=== PATIENT | female | born 1945 | race Caucasian/White ===

== ENCOUNTER 2017-05-17 19:21 | Inpatient (IN) | payer OTHER, MEDICARE ==
[2017-05-17] MEDS ORDERED: ONDANSETRON 4 MG/2 ML VIAL IVP ONE (19:37)
[2017-05-17] MEDS ORDERED: fentaNYL 100 MCG/2 ML INJ IVP ONE (19:37)
[2017-05-17] MEDS ORDERED: DEXAMETHASONE 10 MG/ML VIAL IVP ONE (19:37)
[2017-05-17 19:56] LABS: % IMMATURE GRANULYOCYTES 0.8 % (0.0-1.1); ABSOLUTE IMMATURE GRANULOCYTES 0.07 10^3/uL (0.00-0.10); ADD DIFF? NO; ADD MORPH? NO; ADD SCAN? NO; ATYPICAL LYMPHOCYTE FLAG 20 (0-99); FRAGMENT RBC FLAG 0 (0-99); HEMATOCRIT 39.7 % (38.0-47.0); HEMOGLOBIN 13.9 g/dL (12.6-16.3); LEFT SHIFT FLG 10 (0-99); LIPEMIA HEMOLYSIS FLAG 90 (0-99); MEAN CELL HEMOGLOBIN 32.3 pg (27.9-34.1); MEAN CELL VOLUME 92.1 fL (81.5-99.8); MEAN PLATELET VOLUME 8.6 fL (8.7-11.7); PLATELET CLUMPS FLAG 0 (0-99); PLATELET COUNT 329 10^3/uL (150-400); RED BLOOD CELL COUNT 4.31 10^6/uL (4.18-5.33); RED CELL DISTRIBUTION WIDTH 11.2 % (11.5-15.2)
[2017-05-17 20:05] LABS: ANION GAP 14 mEq/L (8-16); CALCIUM 9.9 mg/dL (8.5-10.4); CARBON DIOXIDE 20 mEq/l (22-31); CHLORIDE 87 mEq/L (97-110); CREATININE 0.7 mg/dL (0.6-1.0); GLOMERULAR FILTRATION RATE > 60; GLUCOSE 99 mg/dL (70-100); POTASSIUM 4.1 mEq/L (3.5-5.2); SODIUM 121 mEq/L (134-144)
--- NOTE | 2017-05-17 20:08 | EDPHY ---
HPI/HX/ROS/PE/MDM Narrative: CHIEF COMPLAINT: Headache, vomiting HISTORY OF PRESENT ILLNESS: This patient is a 71 year old female with history of migraines complaining of severe headache and associated nausea onset this morning around 10:00. She describes a gradually worsening ache in the same location as her usual migraines , beginning at the back of her skull and over her eyes. Today's headache is more severe than usual, and she has has two episodes of vomiting and has been feeling "slow" today. She was last seen in the emergency department for headache around 1.5 years ago. She states she often develops headaches from various dietary causes, nearly daily, and treats them with Gabapentin. Sunday, she had a headache and took a Cambia (diclofenac) which her neurologist have prescribed. This did not relieve her symptoms. She states she has been feeling flushed and warm, but has not taken her temperature. She denies numbness, tingling, or weakness in her extremities. No history of stroke. No hypertension. No chills, chest pain, shortness of breath, palpitations, diarrhea , urinary complaints, lightheadedness. She is scheduled for a nerve block procedure in her neck tomorrow to attempt to reduce the frequency and severity of her headaches. Of note, the patient developed symptoms of bronchitis one week ago and began taking Ceftin on Sunday, two days ago. She is also taking Mucinex DM and inhaler treatments for relief of respiratory symptoms. REVIEW OF SYSTEMS: Aside from elements discussed in the HPI, a comprehensive 10-point review of systems was reviewed and is negative. PAST MEDICAL HISTORY: Migraines. SOCIAL HISTORY: . VITAL SIGNS: Reviewed by me GENERAL: Well-developed, well-nourished, resting comfortably in no respiratory distress. Quiet, slow to respond to questions. HEENT: Atraumatic. Eyes: No icterus, no injection. SONIA, EOMI. Cranial nerves 2 -12 are intact. Mouth: moist mucous membranes. No erythema or lesions. Neck: supple with no adenopathy. No meningismus. LUNGS: Clear to auscultation bilaterally, no wheezes, rhonchi or rales. CARDIAC: Regular rate and rhythm, no rubs, murmurs or gallops. ABDOMEN: Soft, nontender, nondistended, bowel sounds normal. BACK: No CVA tenderness. EXTREMITIES: No trauma. No edema. Range of motion is normal throughout. NEURO: Alert and oriented, motor strength 5/5 throughout. Sensation intact to light touch throughout. SKIN: Warm and dry, no rash. PSYCHIATRIC: Normal mentation, no agitation. Portions of this note were transcribed by a medical assistant ob gyn. I personally performed a history, physical exam, medical decision making, and confirmed accuracy of information the transcribed note. ED Course: 71-year-old female presenting with migraine headache which is more severe than her typical headaches. She also feels slow and sluggish. Plan to CT the patient's head, provide fluids, check electrolytes, and treat for migraine headache. 20:[address] Juhi Arroyo, radiologist. CT head negative. Laboratory evaluation remarkable for sodium of 121. Patient received 500 cc of normal saline. Chest x-ray shows peribronchial fullness. Plan for admission for hyponatremia 20:30 Reassessed patient. Feeling better secondary to meds. is in the room. Agree with plan of admission. 20:[address] Butler, hospitalist. She accepts admission for hyponatremia, headache management. MDM: After history was obtained, and the physical exam performed, a differential for patient's symptom complex was considered including, but not limited to, subarachnoid hemorrhage, migraine headache, electrolyte abnormalities, TIA, stroke, tension headache and infectious causes such as meningitis, sinusitis, encephalitis. - Data Points Imaging Results: Imaging Impressions Head CT 05/17/17 19:37 Impression: Nothing acute or focal. Findings and recommendations discussed with Pamela Bateman M.D., at 2015 hours , on May 17, 2017. Final report concurs with initial preliminary interpretation. Chest X-Ray 05/17/17 20:08 Impression: Mild peribronchial thickening. Imaging: Discussed imaging studies w/ electronics instructor Radiologist, I viewed and interpreted images myself Laboratory Results: Laboratory Results 05/17/17 19:53 05/17/17 19:53 05/17/17 05/17/17 19:53 19:53 WBC 8.33 10^3/uL 10^3/uL (3.80-9.50) RBC 4.31 10^6/uL 10^6/uL (4.18-5.33) Hgb 13.9 g/dL g/dL (12.6-16.3) Hct 39.7 % % (38.0-47.0) MCV 92.1 fL fL (81.5-99.8) MCH 32.3 pg pg (27.9-34.1) MCHC 35.0 g/dL g/dL (32.4-36.7) RDW 11.2 % L % (11.5-15.2) Plt Count 329 10^3/uL 10^3/uL (150-400) MPV 8.6 fL L fL (8.7-11.7) Neut % (Auto) 74.4 % H % (39.3-74.2) Lymph % (Auto) 15.5 % % (15.0-45.0) [place] % (Auto) 8.9 % % (4.5-13.0) Eos % (Auto) 0.2 % L % (0.6-7.6) Baso % (Auto) 0.2 % L % (0.3-1.7) Nucleat RBC Rel Count 0.0 % % (0.0-0.2) Absolute Neuts (auto) 6.19 10^3/uL 10^3/uL (1.70-6.50) Absolute Lymphs (auto) 1.29 10^3/uL 10^3/uL (1.00-3.00) Absolute Monos (auto) 0.74 10^3/uL 10^3/uL (0.30-0.80) Absolute Eos (auto) 0.02 10^3/uL L 10^3/uL (0.03-0.40) Absolute Basos (auto) 0.02 10^3/uL 10^3/uL (0.02-0.10) Absolute Nucleated RBC 0.00 10^3/uL 10^3/uL (0-0.01) Immature Gran % 0.8 % % (0.0-1.1) Immature Gran # 0.07 10^3/uL 10^3/uL (0.00-0.10) Sodium 121 mEq/L L mEq/L (134-144) Potassium 4.1 mEq/L mEq/L (3.5-5.2) Chloride 87 mEq/L L mEq/L (97-110) Carbon Dioxide 20 mEq/l L mEq/l (22-31) Anion Gap 14 mEq/L mEq/L (8-16) BUN 15 mg/dL mg/dL (7-23) Creatinine 0.7 mg/dL mg/dL (0.6-1.0) Estimated GFR > 60 Glucose 99 mg/dL mg/dL (70-100) Calcium 9.9 mg/dL mg/dL (8.5-10.4) Medications Given: Discontinued Medications Dexamethasone (Decadron Injection) 10 mg IVP EDNOW ONE Stop: 05/17/17 19:38 Last Admin: 05/17/17 20:19 Dose: 10 mg Fentanyl (Sublimaze) 50 mcg IVP EDNOW ONE Stop: 05/17/17 19:38 Last Admin: 05/17/17 20:18 Dose: 50 mcg Sodium Chloride (Ns) 500 mls @ 1,000 mls/hr IV EDNOW ONE PRN Reason: Protocol Stop: 05/17/17 20:39 Last Admin: 05/17/17 20:23 Dose: 500 mls Ondansetron HCl (Zofran) 4 mg IVP EDNOW ONE Stop: 05/17/17 19:38 Last Admin: 05/17/17 20:18 Dose: 4 mg General Time Seen by Provider: 05/17/17 19:35 Initial Vital Signs: Initial Vital Signs Temperature (C) 36.4 C 05/17/17 19:23 Heart Rate 84 05/17/17 19:23 Respiratory Rate 16 05/17/17 19:23 Blood Pressure 174/97 H 05/17/17 19:23 O2 Sat (%) 96 05/17/17 19:23 O2 Delivery Mode Room Air Allergies/Adverse Reactions: azithromycin [From Zithromax] Allergy (Mild, Verified 05/17/17 19:29) Rash oxycodone Allergy (Mild, Verified 05/17/17 20:57) Vomiting Penicillins Allergy (Mild, Verified 05/17/17 19:29) mild Home Medications: Medication Instructions Recorded Cefuroxime Axetil [Ceftin (*)] 250 mg PO BID 05/17/17 Cefuroxime Axetil [Cefuroxime] 250 mg PO BID 05/17/17 Diclofenac Potassium [Cambia] 50 mg PO 05/17/17 Diclofenac Potassium [Cambia] 50 mg PO DAILY PRN 05/17/17 Fluticasone Hfa 110 Mcg [Flovent 2 puffs IH BID 05/17/17 110 MCG Hfa MDI (*)] Gabapentin 600 mg PO 05/17/17 Gabapentin Enacarbil [Horizant] 600 mg PO HS 05/17/17 Herbals/Supplements -Info Only 1 ea PO DAILY 05/17/17 Omeprazole [Prilosec 20 mg] 20 mg PO DAILY 05/17/17 Thyroid,Pork [Westhroid] 32.5 mg PO DAILY 05/17/17 Departure - Departure Disposition: [facility] Inpatient Acute Clinical Impression: Hyponatremia Headache Qualifiers: Headache type: unspecified Headache chronicity pattern: chronic headache Intractability: not intractable Qualified Code(s): R51 - Headache Condition: Fair Report Scribed for: Pamela Bateman Report Scribed by: Cammie Martinez Date of Report: 05/17/17 Time of Report: 20:30
[2017-05-17] MEDS ORDERED: NS 500 ML IV ONE (20:10)
[2017-05-17] MEDS ORDERED: ONDANSETRON 4 MG/2 ML VIAL ONE (20:11)
[2017-05-17] MEDS ORDERED: fentaNYL 100 MCG/2 ML INJ ONE (20:12)
[2017-05-17] MEDS ORDERED: DEXAMETHASONE 10 MG/ML VIAL ONE (20:12)
[2017-05-17] MEDS ORDERED: METOCLOPRAMIDE 10 MG/2 ML VIAL IVP ONE (21:35)
[2017-05-17] MEDS ORDERED: HYDROmorphONE/DILAUDID 1 MG/ML SYR IVP ONE (21:36)
[2017-05-17] MEDS ORDERED: ACETAMINOPHEN 325 MG TAB PO PRN (22:26)
[2017-05-17] MEDS ORDERED: ONDANSETRON DISINTEGRATING 4 MG TAB PO PRN (22:26)
[2017-05-17] MEDS ORDERED: ONDANSETRON 4 MG/2 ML VIAL IVP PRN (22:26)
[2017-05-18 00:27] LABS: ANION GAP 11 mEq/L (8-16); CALCIUM 9.4 mg/dL (8.5-10.4); CARBON DIOXIDE 18 mEq/l (22-31); CHLORIDE 91 mEq/L (97-110); CREATININE 0.7 mg/dL (0.6-1.0); GLOMERULAR FILTRATION RATE > 60; GLUCOSE 85 mg/dL (70-100); POTASSIUM 4.4 mEq/L (3.5-5.2); SODIUM 120 mEq/L (134-144)
--- NOTE | 2017-05-18 00:37 | PDGENHP ---
History and Physical - Chief Complaint Headache - History of Present Illness Ms. Doretha Mo is a 71 yo F w/ hx of hypothyroidism, asthma, and migraines presenting to ED with headache. She was in her usual state of health until the middle of last week when she began to experience URI symptoms and visited an urgent care where she received steroids and albuterol for an asthma exacerbation. Her symptoms did not completely resolve so she visited her PCP on Sunday and was prescribed cefuroxime. On the morning prior to admission she woke up with a severe migraine and went to the ED for evaluation. She describes the headache as her usual migraine pattern (pulsating, behind eyes) but worse in severity and not helped by her home PRN medications. Upon arrival to the ED, her pain improved with medication but she was noted to have a sodium of 121 and therefore admitted. She currently denies infectious symptoms. History Information - Allergies/Home Medication List Allergies/Adverse Reactions: azithromycin [From Zithromax] Allergy (Mild, Verified 05/17/17 19:29) Rash oxycodone Allergy (Mild, Verified 05/17/17 20:57) Vomiting Penicillins Allergy (Mild, Verified 05/17/17 19:29) mild Home Medications: Albuterol [Proventil Inhaler HFA (*)] 1 - 2 puffs IH Q4H PRN 05/17/17 [Last Taken Unknown] Ascorbic Acid [Vitamin C 500 mg (*)] 1,000 mg PO BID 05/17/17 [Last Taken Unknown] Cefuroxime Axetil [Cefuroxime] 250 mg PO BID 05/17/17 [Last Taken 05/17/17] Compounded Estriol Cream 0.3% 1 tami VG TUTH 05/17/17 [Last Taken Unknown] Compounded Progesterone 200mg 200 mg PO HS 05/17/17 [Last Taken Unknown] Compounded Testosterone 5mg/G 1 tami TP DAILY 05/17/17 [Last Taken Unknown] Diclofenac Potassium [Cambia] 50 mg PO DAILY PRN 05/17/17 [Last Taken Unknown] Fluticasone Hfa 110 Mcg [Flovent 110 MCG Hfa MDI (*)] 2 puffs IH BID 05/17/17 [ Last Taken Unknown] Gabapentin Enacarbil [Horizant] 600 mg PO HS 05/17/17 [Last Taken Unknown] Herbals/Supplements -Info Only 1 ea PO DAILY 05/17/17 [Last Taken Unknown] Ibuprofen [Motrin (*)] 200 mg PO Q4 PRN 05/17/17 [Last Taken Unknown] Omeprazole [Prilosec 20 mg] 20 mg PO DAILY 05/17/17 [Last Taken Unknown] Thyroid,Pork [Westhroid] 32.5 mg PO DAILY 05/17/17 [Last Taken Unknown] I have personally reviewed and updated: family history, medical history - Past Medical History asthma, migraines (Hypothyroidism) - Surgical History Reports: no pertinent surgical hx - Family History Negative for: renal disease - Social History Smoking Status: Former smoker Alcohol Use: None Drug Use: None Review of Systems ROS: 10pt was reviewed & negative except for what was stated in HPI & below Physical Exam Temp Pulse Resp BP Pulse Ox 36.4 C 69 14 167/88 H 99 05/17/17 22:46 05/17/17 22:46 05/17/17 22:46 05/17/17 22:46 05/17/17 22:46 O2 (L/minute) 2 Constitutional: no apparent distress, not in pain Eyes: PERRL, EOMI Ears, Nose, Mouth, Throat: moist mucous membranes, no oral mucosal ulcers Cardiovascular: regular rate and rhythym, no murmur, rub, or gallop Respiratory: no respiratory distress, clear to auscultation Gastrointestinal: normoactive bowel sounds, soft, non-tender abdomen Skin: warm, no rashes or abrasions Musculoskeletal: full muscle strength, no muscle tenderness Neurologic: AAOx3, CN II-XII Intact Psychiatric: interacting appropriately, not anxious Lab Data & Imaging Review 05/17/17 19:53 05/17/17 23:40 WBC 8.33 10^3/uL (3.80-9.50) 05/17/17 19:53 RBC 4.31 10^6/uL (4.18-5.33) 05/17/17 19:53 Hgb 13.9 g/dL (12.6-16.3) 05/17/17 19:53 Hct 39.7 % (38.0-47.0) 05/17/17 19:53 MCV 92.1 fL (81.5-99.8) 05/17/17 19:53 MCH 32.3 pg (27.9-34.1) 05/17/17 19:53 MCHC 35.0 g/dL (32.4-36.7) 05/17/17 19:53 RDW 11.2 % (11.5-15.2) L 05/17/17 19:53 Plt Count 329 10^3/uL (150-400) 05/17/17 19:53 MPV 8.6 fL (8.7-11.7) L 05/17/17 19:53 Neut % (Auto) 74.4 % (39.3-74.2) H 05/17/17 19:53 Lymph % (Auto) 15.5 % (15.0-45.0) 05/17/17 19:53 [place] % (Auto) 8.9 % (4.5-13.0) 05/17/17 19:53 Eos % (Auto) 0.2 % (0.6-7.6) L 05/17/17 19:53 Baso % (Auto) 0.2 % (0.3-1.7) L 05/17/17 19:53 Nucleat RBC Rel Count 0.0 % (0.0-0.2) 05/17/17 19:53 Absolute Neuts (auto) 6.19 10^3/uL (1.70-6.50) 05/17/17 19:53 Absolute Lymphs (auto) 1.29 10^3/uL (1.00-3.00) 05/17/17 19:53 Absolute Monos (auto) 0.74 10^3/uL (0.30-0.80) 05/17/17 19:53 Absolute Eos (auto) 0.02 10^3/uL (0.03-0.40) L 05/17/17 19:53 Absolute Basos (auto) 0.02 10^3/uL (0.02-0.10) 05/17/17 19:53 Absolute Nucleated RBC 0.00 10^3/uL (0-0.01) 05/17/17 19:53 Immature Gran % 0.8 % (0.0-1.1) 05/17/17 19:53 Immature Gran # 0.07 10^3/uL (0.00-0.10) 05/17/17 19:53 Sodium 120 mEq/L (134-144) L 05/17/17 23:40 Potassium 4.4 mEq/L (3.5-5.2) 05/17/17 23:40 Chloride 91 mEq/L (97-110) L 05/17/17 23:40 Carbon Dioxide 18 mEq/l (22-31) L 05/17/17 23:40 Anion Gap 11 mEq/L (8-16) 05/17/17 23:40 BUN 14 mg/dL (7-23) 05/17/17 23:40 Creatinine 0.7 mg/dL (0.6-1.0) 05/17/17 23:40 Estimated GFR > 60 05/17/17 23:40 Glucose 85 mg/dL (70-100) 05/17/17 23:40 Calcium 9.4 mg/dL (8.5-10.4) 05/17/17 23:40 Urine Osmolality 482 mosmo/kg (300-900) 05/17/17 23:00 Ur Random Creatinine 26.2 mg/dL 05/17/17 23:00 Ur Random Sodium 159 mEq/L (30-90) H 05/17/17 23:00 Imaging Review: Unremarkable CT head, CXR with ranjan-bronchial cuffing Visualized and Interpreted Chest x-ray results: Yes Assessment & Plan Assessment: Ms Doretha Mo is a 71 yo F w/ hx of migraines, hypothyroidism, and asthma presenting with headache and hyponatremia after recent respiratory infection. Plan: 1. 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 SIADH supported by: Na 121->120 after 500 mL of NS ; Barber 149, FeNa 3.5%, Uosm>400. CTH unremarkable, no neurologic symptoms currently aside from resolved headache. - 2L fluid restriction for now, recheck BMP in AM - Renal consult in the morning (no answer tonight) - TSH with morning labs 2. Asthma - Patient describes as exercise induced. Will continue inhaled steroid and albuterol PRN. 3. Migraines - Patient currently pain free. 4 Hypothyroid - Continue LTX, checking TSH.
[2017-05-18 00:53] LABS: COLOR YELLOW; LEUKOCYTE ESTERASE,URINE NEGATIVE (NEGATIVE); NITRITE,URINE NEGATIVE (NEGATIVE)
[2017-05-18 04:42] LABS: % IMMATURE GRANULYOCYTES 0.8 % (0.0-1.1); ABSOLUTE IMMATURE GRANULOCYTES 0.06 10^3/uL (0.00-0.10); ADD DIFF? NO; ADD MORPH? NO; ADD SCAN? NO; ATYPICAL LYMPHOCYTE FLAG 10 (0-99); FRAGMENT RBC FLAG 0 (0-99); HEMATOCRIT 36.1 % (38.0-47.0); HEMOGLOBIN 13.1 g/dL (12.6-16.3); LEFT SHIFT FLG 10 (0-99); LIPEMIA HEMOLYSIS FLAG 90 (0-99); MEAN CELL HEMOGLOBIN 32.7 pg (27.9-34.1); MEAN CELL HEMOGLOBIN CONCENTR. 36.3 g/dL (32.4-36.7); MEAN PLATELET VOLUME 8.3 fL (8.7-11.7); PLATELET CLUMPS FLAG 0 (0-99); PLATELET COUNT 292 10^3/uL (150-400); RED BLOOD CELL COUNT 4.01 10^6/uL (4.18-5.33); RED CELL DISTRIBUTION WIDTH 11.1 % (11.5-15.2)
[2017-05-18 05:06] LABS: ANION GAP 13 mEq/L (8-16); CALCIUM 9.1 mg/dL (8.5-10.4); CARBON DIOXIDE 17 mEq/l (22-31); CHLORIDE 90 mEq/L (97-110); CREATININE 0.6 mg/dL (0.6-1.0); GLOMERULAR FILTRATION RATE > 60; GLUCOSE 93 mg/dL (70-100); POTASSIUM 4.5 mEq/L (3.5-5.2); SODIUM 120 mEq/L (134-144)
[2017-05-18] MEDS: GABAPENTIN ENACARBIL 300 MG PO SCH ×2 (08:11→20:36)
[2017-05-18] MEDS: PANTOPRAZOLE SODIUM 40 MG TAB PO SCH (08:12)
[2017-05-18] MEDS: ENOXAPARIN 40 MG/0.4 ML SYR SC SCH (08:12)
[2017-05-18] MEDS ORDERED: THYROID 32.5 MG PO SCH (10:00)
[2017-05-18] MEDS ORDERED: HYDROCODONE/APAP 5/325 TAB PO PRN (10:09)
[2017-05-18] MEDS ORDERED: traMADol 50 MG TAB PO PRN (10:11)
--- NOTE | 2017-05-18 10:17 | HOSPPROG ---
Hospitalist Progress Note Assessment/Plan: * SIADH -given normal mental status, this clearly has come on slowly -needs slow correction -d/w nephrology - Dr. Melendez -increase fluid restriction, possible hypertonic saline vs salt tabs per renal -check cortisol in am, TSH okay * Escalating headaches -with new SIADH, further imaging of brain indicated -check MRI brain W/WO contrast -patient's mother had brain aneurysm - requests MRA too * Recent dx bronchitis -continue outpatient antibiotic Subjective: No headache currently. Was schedule for nerve block as outpatient today for migraines. Has not had MRI brain since 2012. Headaches recently escalating. Tries to drink a lot of water but can't because it makes her nauseated. Cough for one week, on abx since Sunday. Objective: Vital Signs Temp Pulse Resp BP Pulse Ox 36.6 C 80 16 116/65 96 05/18/17 07:10 05/18/17 07:10 05/18/17 07:10 05/18/17 07:10 05/18/17 07:10 Laboratory Results 05/18/17 04:17 05/18/17 04:17 05/17/17 05/18/17 05/19/17 05:59 05:59 05:59 Intake Total 550 Output Total 500 Balance 50 - Physical Exam Constitutional: no apparent distress, appears nourished, not in pain Cardiovascular: regular rate and rhythym, no murmur, rub, or gallop Respiratory: no respiratory distress, no rales or rhonchi, clear to auscultation Gastrointestinal: normoactive bowel sounds, soft, non-tender abdomen, no palpable masses Skin: no rashes or abrasions, no fluctuance, no induration Neurologic: AAOx3, sensation intact bilaterally Psychiatric: interacting appropriately, not anxious, not encephalopathic, thought process linear ICD10 Worksheet Patient Problems: Problems Problem Status Onset Headache Acute Hyponatremia Acute
[2017-05-18] MEDS: CEFUROXIME AXETIL 250 MG TAB PO SCH ×2 (10:58→20:36)
--- NOTE | 2017-05-18 11:04 | PDCONSULT ---
Cubing Machine Tender Note: Assessment/Plan: Hyponatremia: urine osm 482, urine sodium 159, serum osm 251, serum sodium 120. She appears to have an SIADH picture that may have been exacerbated by increased fluid intake and low solute intake. She is asymptomatic at this time. TSH wnl. - Would avoid IVFs. - No need for hypertonic saline at this time. - Will fluid restrict to 1000ml today. - Will start on salt tabs 1000mg BID. - Will continue to monitor sodium q6h for now. - Will check am cortisol. Thank you for the interesting consult. Nephrology will continue to follow, please call if you have any additional questions or concerns. H & P Stated Complaint: migraine BALDWIN, worse than normal migraines, N/V since this afternoon Time Seen by Provider: 05/17/17 19:35 HPI/ROS: HPI: Ms. Mo is a 71 yo F with h/o migraines and asthma who presented yesterday to ER with complaints of migraine. She notes that last week she started to have URI symptoms and was treated with steroids and albuterol. When her symptoms did not improve, she was given cefuroxime by PCP on Sunday. She woke up yesterday with a terrible migraine, which is a chronic problem for her. She was found on presentation to have sodium of 121, got 500ml NS and then down to 120 this am. She states that having low sodium sounds familiar but had never been told anything to do about it, looking back her sodium has been 132-133 since 2015. She states that she is constantly told to drink more water for headaches and tries to do so. She does not eat very much, she is on a very restricted diet as there was a thought that her gut mary could be playing a role in her migraines. She notes having cravings for potato chips. She has been told to take in electrolytes, drinks salt water sometimes. ROS: Positive per HPI and for cough and a dull headache, rest of 10-point ROS negative - Personal History Current Tetanus/Diphtheria Vaccine: Yes - Medical/Surgical History Hx Asthma: Yes Hx Chronic Respiratory Disease: No Hx Diabetes: No Hx Cardiac Disease: No Hx Renal Disease: No Hx Cirrhosis: No Hx Alcoholism: No Hx HIV/AIDS: No Hx Splenectomy or Spleen Trauma: No Other PMH: migraines, exercise induced asthma - Family History Significant Family History: No pertinent family hx - Social History Smoking Status: Former smoker - Physical Exam Exam: General: alert and oriented, no acute distress Eyes; EOMI, PERRL OP: Clear, MMM Neck: supple, no thyromegaly CV: RRR, +2/4 radial and dorsalis pedis pulses, no peripheral edema Resp: bronchial breath sounds, +cough, nonlabored respirations Abd; Soft, NT/ND Neuro: CN II-XII grossly intact, no asterixis Psych; cooperative, appropriate mood and affect Skin: C/D/I, no rash Constitutional: Initial Vital Signs Temperature (C) 36.4 C 05/17/17 19:23 Heart Rate 84 05/17/17 19:23 Respiratory Rate 16 05/17/17 19:23 Blood Pressure 174/97 H 05/17/17 19:23 O2 Sat (%) 96 05/17/17 19:23 O2 Delivery Mode Room Air Allergies/Adverse Reactions: azithromycin [From Zithromax] Allergy (Mild, Verified 05/17/17 19:29) Rash oxycodone Allergy (Mild, Verified 05/17/17 20:57) Vomiting Penicillins Allergy (Mild, Verified 05/17/17 19:29) mild Home Medications: Medication Instructions Recorded Albuterol [Proventil Inhaler HFA 1 - 2 puffs IH Q4H PRN 05/17/17 (*)] Ascorbic Acid [Vitamin C 500 mg 1,000 mg PO BID 05/17/17 (*)] Cefuroxime Axetil [Cefuroxime] 250 mg PO BID 05/17/17 Compounded Estriol Cream 0.3% 1 tami VG TUTH 05/17/17 Compounded Progesterone 200mg 200 mg PO HS 05/17/17 Compounded Testosterone 5mg/G 1 tami TP DAILY 05/17/17 Diclofenac Potassium [Cambia] 50 mg PO DAILY PRN 05/17/17 Fluticasone Hfa 110 Mcg [Flovent 2 puffs IH BID 05/17/17 110 MCG Hfa MDI (*)] Gabapentin Enacarbil [Horizant] 600 mg PO HS 05/17/17 Herbals/Supplements -Info Only 1 ea PO DAILY 05/17/17 Ibuprofen [Motrin (*)] 200 mg PO Q4 PRN 05/17/17 Omeprazole [Prilosec 20 mg] 20 mg PO DAILY 05/17/17 Thyroid,Pork [Westhroid] 32.5 mg PO DAILY 05/17/17 Lab and Imaging 05/18/17 04:17 05/18/17 04:17 WBC 7.32 10^3/uL (3.80-9.50) 05/18/17 04:17 RBC 4.01 10^6/uL (4.18-5.33) L 05/18/17 04:17 Hgb 13.1 g/dL (12.6-16.3) 05/18/17 04:17 Hct 36.1 % (38.0-47.0) L 05/18/17 04:17 MCV 90.0 fL (81.5-99.8) 05/18/17 04: MCH 32.7 pg (27.9-34.1) 05/18/17 04: MCHC 36.3 g/dL (32.4-36.7) 05/18/17 04:17 RDW 11.1 % (11.5-15.2) L 05/18/17 04:17 Plt Count 292 10^3/uL (150-400) 05/18/17 04: MPV 8.3 fL (8.7-11.7) L 05/18/17 04:17 Neut % (Auto) 85.5 % (39.3-74.2) H 05/18/17 04:17 Lymph % (Auto) 11.6 % (15.0-45.0) L 05/18/17 04:17 [place] % (Auto) 2.0 % (4.5-13.0) L 05/18/17 04:17 Eos % (Auto) 0.0 % (0.6-7.6) L 05/18/17 04:17 Baso % (Auto) 0.1 % (0.3-1.7) L 05/18/17 04:17 Nucleat RBC Rel Count 0.0 % (0.0-0.2) 05/18/17 04:17 Absolute Neuts (auto) 6.25 10^3/uL (1.70-6.50) 05/18/17 04:17 Absolute Lymphs (auto) 0.85 10^3/uL (1.00-3.00) L 05/18/17 04:17 Absolute Monos (auto) 0.15 10^3/uL (0.30-0.80) L 05/18/17 04:17 Absolute Eos (auto) 0.00 10^3/uL (0.03-0.40) L 05/18/17 04:17 Absolute Basos (auto) 0.01 10^3/uL (0.02-0.10) L 05/18/17 04:17 Absolute Nucleated RBC 0.00 10^3/uL (0-0.01) 05/18/17 04:17 Immature Gran % 0.8 % (0.0-1.1) 05/18/17 04:17 Immature Gran # 0.06 10^3/uL (0.00-0.10) 05/18/17 04:17 Sodium 120 mEq/L (134-144) L 05/18/17 04:17 Potassium 4.5 mEq/L (3.5-5.2) 05/18/17 04:17 Chloride 90 mEq/L (97-110) L 05/18/17 04:17 Carbon Dioxide 17 mEq/l (22-31) L 05/18/17 04:17 Anion Gap 13 mEq/L (8-16) 05/18/17 04:17 BUN 14 mg/dL (7-23) 05/18/17 04:17 Creatinine 0.6 mg/dL (0.6-1.0) 05/18/17 04:17 Estimated GFR > 60 05/18/17 04:17 Glucose 93 mg/dL (70-100) 05/18/17 04:17 Serum Osmolality 251 mosmo/kg (280-297) L 05/17/17 23:40 Uric Acid 3.8 mg/dL (2.5-6.8) 05/17/17 00:00 Calcium 9.1 mg/dL (8.5-10.4) 05/18/17 04:17 TSH 0.492 uIU/mL (0.465-4.680) 05/18/17 04:17 Urine Color YELLOW 05/17/17 23:00 Urine Appearance HAZY 05/17/17 23:00 Urine pH 7.0 (5.0-7.5) 05/17/17 23:00 Ur Specific [place] 1.011 (1.002-1.030) 05/17/17 23:00 Urine Protein NEGATIVE (NEGATIVE) 05/17/17 23:00 Urine Ketones 2+ (NEGATIVE) H 05/17/17 23:00 Urine Blood NEGATIVE (NEGATIVE) 05/17/17 23:00 Urine Nitrate NEGATIVE (NEGATIVE) 05/17/17 23:00 Urine Bilirubin NEGATIVE (NEGATIVE) 05/17/17 23:00 Urine Urobilinogen NEGATIVE EU (0.2-1.0) 05/17/17 23:00 Ur Leukocyte Esterase NEGATIVE (NEGATIVE) 05/17/17 23:00 Urine Osmolality 482 mosmo/kg (300-900) 05/17/17 23:00 Ur Random Creatinine 26.2 mg/dL 05/17/17 23:00 Ur Random Sodium 159 mEq/L (30-90) H 05/17/17 23:00 Urine Glucose NEGATIVE (NEGATIVE) 05/17/17 23:00
[2017-05-18] MEDS ORDERED: SODIUM CHLORIDE 1,000 MG TAB PO SCH (11:13)
[2017-05-18] MEDS: FLUTICASONE HFA 110 MCG MDI IH SCH ×2 (11:25→20:36)
[2017-05-18] MEDS ORDERED: GADOBUTROL 10 ML VIAL IVP ONE (11:56)
[2017-05-18] MEDS: SODIUM CHLORIDE 1,000 MG TAB PO SCH (16:28)
[2017-05-18] MEDS ORDERED: COMPOUNDED PROGESTERONE 200 MG PO SCH (21:00)
[2017-05-19] MEDS: ENOXAPARIN 40 MG/0.4 ML SYR SC SCH (07:40)
[2017-05-19] MEDS: FLUTICASONE HFA 110 MCG MDI IH SCH ×3 (08:09→20:10)
[2017-05-19] MEDS: SODIUM CHLORIDE 1,000 MG TAB PO SCH ×2 (08:55→18:06)
[2017-05-19] MEDS: CEFUROXIME AXETIL 250 MG TAB PO SCH ×2 (08:55→20:09)
[2017-05-19] MEDS: PANTOPRAZOLE SODIUM 40 MG TAB PO SCH (08:56)
[2017-05-19] MEDS: TESTOSTERONE TP SCH (08:56)
[2017-05-19] MEDS ORDERED: TESTOSTERONE TP SCH (09:00)
[2017-05-19 09:40] LABS: ANION GAP 13 mEq/L (8-16); CALCIUM 9.3 mg/dL (8.5-10.4); CARBON DIOXIDE 18 mEq/l (22-31); CHLORIDE 96 mEq/L (97-110); CREATININE 0.7 mg/dL (0.6-1.0); GLOMERULAR FILTRATION RATE > 60; GLUCOSE 81 mg/dL (70-100); SODIUM 127 mEq/L (134-144)
--- NOTE | 2017-05-19 12:16 | SOAPPROG ---
[facility] Progress Note Assessment/Plan: Assessment: 1. Hyponatremia - -Labs consistent with SAIDH: urine osm 482, urine sodium 159, serum osm 251, serum sodium 120. -This may have been elicited by increased fluid intake and low solute intake. She also takes Ibuprofen and recently started Diclofenac as well. NSAIDs are known to contribute to hyponatremia so these should be avoided -She is on a restricted diet for her migraines and this may have contributed to lower solute intake. I discussed with her this may not be in her best interest as it did not resolve migraines anyway -TSH wnl, am cortisol normal -She has been started on fluid restriction of 1000ml and salt tabs 2000mg BID. Will lower to 1000mg BID to slow rate of correction. -Serum Na increased appropriately overnight, a little fast this morning. She is tolerating PO so advised she drink an extra 500cc water this morning -Will continue to monitor sodium q6h for now. -Recheck urine studies 2. Migraines - -Avoid NSAIDs -She is on rayne -May benefit from additional prophylaxis -On tramadol and norco for breakthrough, these are OK Plan: 05/19/17 12:12 05/19/17 12:15 05/19/17 12:17 05/19/17 12:18 Subjective: Feels better than yesterday, BALDWIN less. Denies nausea currently. Still has cough. Objective: Vital Signs Temp Pulse Resp BP Pulse Ox 36.7 C 72 18 107/66 93 05/19/17 08:00 05/19/17 08:00 05/19/17 08:00 05/19/17 08:00 05/19/17 08:00 Laboratory Results 05/18/17 04:17 05/18/17 05/19/17 05/20/17 05:59 05:59 05:59 Intake Total 550 100 Output Total 500 Balance 50 100 Physical Exam - Physical Exam General Appearance: WD/WN, alert, no apparent distress Respiratory: rhonchi (on coughing, clear on regular breathing) Cardiac/Chest: regular rate, rhythm Abdomen: non-tender, soft Extremities: No swelling ICD10 Worksheet Patient Problems: Problems Problem Status Onset Headache Acute Hyponatremia Acute
[2017-05-19] MEDS ORDERED: D5W 1,000 ML IV SCH (12:45)
[2017-05-19] MEDS: ALBUTEROL 200 PUFFS/18 GM MDI IH PRN (13:06)
--- NOTE | 2017-05-19 17:18 | HOSPPROG ---
Hospitalist Progress Note Assessment/Plan: The patient is a female with PMH Monse who was admitted for hyponatremia. ASSESSMENT/PLAN: Hyponatremia Chronic migraines Generalized weakness Balance problem -discussed case with radio news anchor, who said SIADH can be caused by NSAID use. Told patient not use NSAID anymore. -patient is responding well to salt tablets. Perhaps too well, thought was decreased today and patient was allowed to drink some more fluid. -follow up repeat urine studies. -ISU -explained to patient that recurrent hyponatremia is not the cause of the migraines she has had since she was in her 20s. Looking back in her chart, she had normal sodium 2013 and likely had normal sodium prior to that. Disposition: Med surge with discharge anticipated in the next 1-2 days. ____ SUBJECTIVE: Today the patient feels a little better. She wants to know if her migraines were caused by the hyponatremia. OBJECTIVE: Physical Exam: General: The patient is a thin, elderly female who is alert and in no acute distress. HEENT: normocephalic, extraocular movements intact, conjunctivae clear. Mucous membranes moist. Neck: trachea midline, no visible masses. CV: +S1/S2, RRR, no MRG. Resp: unlabored, CTAB no RRW. Abd: soft and nondistended. Bowel sounds present. Musculoskeletal: Normal muscle tone/bulk. Neuro: cranial nerves II XII grossly intact. Intact gross motor and sensory function. Psych: Appropriate mood and appropriate affect. Seems a little forgetful. Skin: Mild pallor. No petechiae. Heme/lymph: No peripheral edema at bilateral lower extremities. Labs/Imaging/Other Tests: Personally reviewed/interpreted. This patient is new to me. Reviewed patient's chart/records for this visit. Objective: Vital Signs Temp Pulse Resp BP Pulse Ox 36.5 C 76 14 111/61 94 05/19/17 16:00 05/19/17 16:00 05/19/17 16:00 05/19/17 16:00 05/19/17 16:00 Laboratory Results 05/18/17 04:17 05/19/17 11:25 05/18/17 05/19/17 05/20/17 05:59 05:59 05:59 Intake Total 550 100 600 Output Total 500 Balance 50 100 600 ICD10 Worksheet Patient Problems: Problems Problem Status Onset Headache Acute Hyponatremia Acute
[2017-05-19] MEDS ORDERED: SODIUM CHLORIDE 1,000 MG TAB PO SCH (18:00)
[2017-05-19] MEDS ORDERED: DESMOPRESSIN ACETATE 2 MCG in NS 50 ML IV ONE (19:00)
[2017-05-19] MEDS ORDERED: D5W 1,000 ML IV ONE (19:00)
[2017-05-19] MEDS: GABAPENTIN ENACARBIL 300 MG PO SCH (20:09)
[2017-05-20] MEDS ORDERED: SODIUM CHLORIDE 1,000 MG TAB PO SCH (08:00)
[2017-05-20] MEDS: FLUTICASONE HFA 110 MCG MDI IH SCH ×2 (08:14→20:28)
[2017-05-20 08:35] LABS: ANION GAP 8 mEq/L (8-16); CALCIUM 8.9 mg/dL (8.5-10.4); CARBON DIOXIDE 22 mEq/l (22-31); CHLORIDE 99 mEq/L (97-110); CREATININE 0.7 mg/dL (0.6-1.0); GLOMERULAR FILTRATION RATE > 60; GLUCOSE 84 mg/dL (70-100); POTASSIUM 3.9 mEq/L (3.5-5.2); SODIUM 129 mEq/L (134-144)
[2017-05-20] MEDS: CEFUROXIME AXETIL 250 MG TAB PO SCH ×2 (08:46→20:28)
[2017-05-20] MEDS: PANTOPRAZOLE SODIUM 40 MG TAB PO SCH (08:46)
[2017-05-20] MEDS: TESTOSTERONE TP SCH (08:47)
[2017-05-20] MEDS: ENOXAPARIN 40 MG/0.4 ML SYR SC SCH (08:48)
--- NOTE | 2017-05-20 15:01 | SOAPPROG ---
SOAP Progress Note Assessment/Plan: Assessment: 1. Hyponatremia - -Labs initially consistent with SAIDH: urine osm 482, urine sodium 159, serum osm 251, serum sodium 120. -Repeat labs showed dilute urine and low urine sodium -Suspect the initial pathology may have been elicited by increased fluid intake and low solute intake in setting of Ibuprofen Diclofenac use (Diclofenac just started a few days prior to admit). NSAIDs are known to contribute to hyponatremia and she was advised that these should be avoided -She is also on a restricted diet for her migraines and this may have contributed to lower solute intake. I discussed with her this may not be in her best interest as it did not resolve migraines anyway -TSH wnl, am cortisol normal -As her urine labs shifted to appropriate dilution of urine, she started to overcorrect -Gave 0.2mcg ddAVP last night which arrested over-correction and also gave 1L D5W -Rate adjusted to appropriate, now starting to drift back up -Initially on salt tabs, now d/c'd -Can liberalize fluid restriction to 1500ml -Lengthen sodium check to q12h -Recheck urine studies 2. Migraines - -Avoid NSAIDs -She is on rayne -May benefit from additional prophylaxis -On tramadol and norco for breakthrough, these are OK Plan: 05/20/17 15:02 05/20/17 15:04 Subjective: Feels ok. Still has dry cough, no SOB except when coughing. Objective: Vital Signs Temp Pulse Resp BP Pulse Ox 36.5 C 72 12 140/76 H 95 05/20/17 09:15 05/20/17 09:15 05/20/17 09:15 05/20/17 09:15 05/20/17 09:15 Laboratory Results 05/18/17 04:17 05/19/17 05/20/17 05/21/17 05:59 05:59 05:59 Intake Total 100 1700 50 Output Total 2100 500 Balance 100 -400 -450 Physical Exam - Physical Exam General Appearance: WD/WN Respiratory: lungs clear (rhonchi with cough but otherwise clear) Cardiac/Chest: regular rate, rhythm Abdomen: non-tender Extremities: No swelling ICD10 Worksheet Patient Problems: Problems Problem Status Onset Headache Acute Hyponatremia Acute
--- NOTE | 2017-05-20 19:06 | HOSPPROG ---
Hospitalist Progress Note Assessment/Plan: The patient is a female with PMH migraines who was admitted for hyponatremia. 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 -SIADH can be caused by NSAID use. Told patient not use NSAID anymore. Recommended she consume a normal diet. She avoids carbs for her migraines. -Patient very concerned about how to Tx migraines. She has an outpt Neurologist , I recommended she FU w/ him as there are many options for Tx. May qualify for Botox injections if she has failed po ppx meds. Disposition: Med surg with discharge anticipated tomorrow. ____ SUBJECTIVE: Today the patient feels a little better. She wants to know how to Tx her migraines. OBJECTIVE: Physical Exam: General: The patient is a thin, elderly female who is alert and in no acute distress. HEENT: normocephalic, extraocular movements intact, conjunctivae clear. Mucous membranes moist. Neck: trachea midline, no visible masses. CV: +S1/S2, RRR, no MRG. Resp: unlabored, CTAB no RRW. Abd: soft and nondistended. Bowel sounds present. Musculoskeletal: Normal muscle tone/bulk. Neuro: cranial nerves II XII grossly intact. Intact gross motor and sensory function. Psych: Appropriate mood and appropriate affect. Skin: Mild pallor. No petechiae. Heme/lymph: No peripheral edema at bilateral lower extremities. Labs/Imaging/Other Tests: Personally reviewed/interpreted. Objective: Vital Signs Temp Pulse Resp BP Pulse Ox 36.5 C 72 12 140/76 H 95 05/20/17 09:15 05/20/17 09:15 05/20/17 09:15 05/20/17 09:15 05/20/17 09:15 Laboratory Results 05/18/17 04:17 05/20/17 14:45 05/19/17 05/20/17 05/21/17 05:59 05:59 05:59 Intake Total 100 1700 650 Output Total 2100 500 Balance 100 -400 150 ICD10 Worksheet Patient Problems: Problems Problem Status Onset Headache Acute Hyponatremia Acute
[2017-05-20] MEDS: GABAPENTIN ENACARBIL 300 MG PO SCH (20:28)
[2017-05-21] MEDS: TESTOSTERONE TP SCH (07:30)
[2017-05-21] MEDS: ENOXAPARIN 40 MG/0.4 ML SYR SC SCH (07:30)
[2017-05-21] MEDS: CEFUROXIME AXETIL 250 MG TAB PO SCH (08:16)
[2017-05-21] MEDS ORDERED: MAGNESIUM HYDROXIDE 30 ML UDCUP PO PRN (08:18)
[2017-05-21] MEDS ORDERED: BISACODYL 10 MG SUPP PR PRN (08:18)
[2017-05-21] MEDS ORDERED: POLYETHYLENE GLYCOL 3350 17 GM PKT PO PRN (08:18)
[2017-05-21] MEDS ORDERED: LACTULOSE 20 GM/30 ML UDCUP PO PRN (08:18)
[2017-05-21] MEDS: FLUTICASONE HFA 110 MCG MDI IH SCH (08:22)
[2017-05-21] MEDS: ALBUTEROL 200 PUFFS/18 GM MDI IH PRN (08:22)
[2017-05-21 08:26] VITALS: BP 130/76; TEMP 98.1
[2017-05-21 08:30] VITALS: PULSE 76; RESP 18; O2SAT 95
[2017-05-21] MEDS ORDERED: SENNOSIDES/DOCUSATE SODIUM TAB PO SCH (09:00)
[2017-05-21] MEDS: PANTOPRAZOLE SODIUM 40 MG TAB PO SCH (09:48)
[2017-05-21] MEDS ORDERED: MAGNESIUM CITRATE 300 ML BOTTLE PO ONE (10:15)
--- NOTE | 2017-05-21 11:18 | SOAPPROG ---
SOAP Progress Note Assessment/Plan: Assessment/Plan: Hyponatremia: initial urine studies consistent with SIADH, repeat urine studies show appropriately low urine sodium and urine osm. Likely she had hyponatremia in setting of abundant fluid intake, poor solute intake and NSAID use. Her sodium is now stable at 129. - Would continue 1.5L fluid restriction for now. - Expect it to continue to improve on its own now. - If discharged, recommend that she had sodium checked again middle of this week. - Will arrange for f/u in nephrology clinic in 2 weeks. Subjective: No acute events overnight. Pt states she is feeling well, has no complaints today. Objective: Vital Signs Temp Pulse Resp BP Pulse Ox 36.7 C 76 18 130/76 H 95 05/21/17 08:00 05/21/17 08:26 05/21/17 08:26 05/21/17 08:00 05/21/17 08:26 Laboratory Results 05/18/17 04:17 05/21/17 07:57 05/20/17 05/21/17 05/22/17 05:59 05:59 05:59 Intake Total 1700 650 Output Total 2100 500 Balance -400 150 General; alert and oriented, no acute distress Eyes; EOMI, PERRL OP: clear CV: RRR Resp: nonlabored respirations on RA Abd: Soft, NT Ext: no edema Neuro: CN II-XII grossly intact, no asterixis Psych; cooperative, appropriate mood and affect ICD10 Worksheet Patient Problems: Problems Problem Status Onset Headache Acute Hyponatremia Acute
--- NOTE | 2017-05-21 12:44 | PDDCSUM ---
Discharge Summary Discharge Summary: DISCHARGE SUMMARY FOLLOW-UP ITEMS: Repeat creatinine BUN and lytes on 05/23/2017 DATE OF ADMISSION: 05/17/2017 DATE OF DISCHARGE: 05/21/2017 DISCHARGE DIAGNOSES: 1. Acute hyponatremia 2. Acute ataxia 3. Chronic migraine disorder CONSULTATIONS: Nephrology PROCEDURES / IMAGING: MRI of the brain demonstrating small vessel disease, no acute infarct, MRA demonstrating no large vessel disease CHIEF COMPLAINT: Acute ataxia SUBJECTIVE: Patient is feeling well at time discharge, her headaches well controlled, she feels like she has bowels, she is tolerating oral intake PHYSICAL EXAM ON DISCHARGE: Systolic blood pressure 120-140, heart rate 70, afebrile overnight, satting well on room air, net even, alert awake oriented x3 no apparent distress pain level 0/10 LABS ON DISCHARGE: Serum sodium level 129, creatinine 0.7 HOSPITAL COURSE BY PROBLEM: 1. Acute hyponatremia. Resulting in ataxia, labs initially consistent with SIADH with urine Osmo of 482, urine sodium of 159, serum Osmo of 251, serum sodium of 120. Her hyponatremia may also have been contributing to her symptoms of headache, nausea, lightheadedness. We suspect that the initial pathology may have been listed by increased fluid intake in the setting of recent vomiting from her migraines. She also had low solid intake and was concomitant taking ibuprofen and diclofenac. She required doses of DDAVP as well as titration of IV fluids, salt tabs, titration of fluid restriction. Her sodium level stabilized around 130 (129 at discharge), and she is asymptomatic from it at this time. Since nonsteroidal anti-inflammatory medications are known to contribute to hyponatremia, the patient was advised that he should be avoided, and she can utilize Tylenol safely. We also recommended that the patient may discuss liberalizing her solid food diet with her neurologist as her dietary restrictions do not seem to be appreciably affecting her migraine headaches any way. We do recommend 1.5 L daily fluid restriction, and I have counseled the patient that fluid consumption in the setting of migraine headaches and vomiting should consist of high solid containing fluids, safer ones include bone broth, Pedialyte, propel, electrolyte water. She should have repeat chemistry this week, outpatient follow up with Nephrology. 2. Chronic migraine disorder. We recommended that she avoid nonsteroidal anti- inflammatory medications and we do believe that she may benefit from additional prophylactic medications. She did utilize tramadol and [place] for breakthrough, but I would not recommend these medications for long-term management and have not prescribed them at discharge. She should follow up with her primary neurologist immediately, and discuss breakthrough medications as well as prophylactic ones. DISCHARGE MEDICATIONS: Please see official discharge medication reconciliation sheet in chart , discontinue diclofenac and ibuprofen. DISCHARGE INSTRUCTIONS: Please follow up with the outpatient neurologist this is possible, get repeat labs this week and follow up with outpatient Nephrology. TIME SPENT: Greater than 30 minutes were spent on direct patient care, as well as discharge planning and preparation.
[2017-05-22] MEDS ORDERED: ESTRIOL VG SCH ×2 (10:12→10:29)
== END 2017-05-21 13:56 | disposition home or self-care (01) | DRG 645 ==
LOC: OBSVTOIN 20:42 → F3E 22:42
PROVIDERS: ADMIT Hospitalist; ATTEND Hospitalist
DX: E22.2 Syndrome of inappropriate secretion of antidiuretic hormone (principal); R27.0 Ataxia, unspecified; G43.909 Migraine, unspecified, not intractable, without status migrainosus; J40 Bronchitis, not specified as acute or chronic; E03.9 Hypothyroidism, unspecified
CPT/HCPCS: 96374; A9585; J1100; J1170; J1200; J1650; J2405; J2597; J2765; J3010

== ENCOUNTER → 2017-06-20 | Outpatient (CLI) | payer OTHER, MEDICARE | LOC: BHFA 10:00 | PROVIDERS: ATTEND Internal Medicine Cardiovascular Disease | DX: J45.909 Unspecified asthma, uncomplicated (principal) | CPT/HCPCS: 94060; 94070; 94726; 94729; J7674 ==

== ENCOUNTER → 2017-09-27 | Outpatient (CLI) | payer OTHER, MEDICARE | LOC: FIMAGING 10:00 | PROVIDERS: ATTEND Family Medicine | DX: Z13.820 Encounter for screening for osteoporosis (principal); M81.0 Age-related osteoporosis without current pathological fracture; M85.80 Other specified disorders of bone density and structure, unspecified site; Z78.0 Asymptomatic menopausal state | CPT/HCPCS: 82627-90; 84481-90 ==

== ENCOUNTER → 2017-12-04 | Outpatient (CLI) | payer OTHER, MEDICARE | LOC: FIMAGING 12:05 | PROVIDERS: ATTEND Psychiatry & Neurology Neurology | DX: M50.30 Other cervical disc degeneration, unspecified cervical region (principal); M89.38 Hypertrophy of bone, other site ==

== ENCOUNTER 2017-12-05 18:22 | Emergency (ER) | payer OTHER, MEDICARE ==
[2017-12-05 19:05] VITALS: RESP 16; TEMP 98.1
[2017-12-05 19:22] LABS: PLATELET COUNT 333 10^3/uL (150-400)
[2017-12-05] MEDS ORDERED: METOCLOPRAMIDE 10 MG/2 ML VIAL IVP ONE (19:24)
[2017-12-05] MEDS ORDERED: DEXAMETHASONE 10 MG/ML VIAL IVP ONE (19:24)
[2017-12-05] MEDS ORDERED: KETOROLAC 30 MG/1 ML SDV IVP ONE (19:27)
--- NOTE | 2017-12-05 19:27 | EDPHY ---
H & P Stated Complaint: Migraine x several days; Imitrex not helping;+ nausea/ photophobia - Personal History Current Tetanus Diphtheria and Acellular Pertussis (TDAP): Yes - Medical/Surgical History Hx Asthma: Yes Hx Chronic Respiratory Disease: No Hx Diabetes: No Hx Cardiac Disease: No Hx Renal Disease: No Hx Cirrhosis: No Hx Alcoholism: No Hx HIV/AIDS: No Hx Splenectomy or Spleen Trauma: No Other PMH: migraines, exercise induced asthma - Social History Smoking Status: Former smoker Time Seen by Provider: 12/05/17 18:50 HPI/ROS: CHIEF COMPLAINT: Migraine headache x7 days HISTORY OF PRESENT ILLNESS: 72-year-old female with a multiyear history of migraine headache, has been seen by numerous neurologist, firmly followed by Dr. Will Meier, has been seen by "over 200 providers and healers". This her current headache started 4 days ago, not thunderclap, feels exactly like her usual chronic breakthrough headaches. Unrelieved with oral sumatriptan. No head trauma recently. No head or neck manipulation or trauma. PRIMARY CARE PROVIDER:Ramiro. Primary neurologist Dr. Will Meier REVIEW OF SYSTEMS: A ten point review of systems was performed and is negative with the exception of the items mentioned in the HPI PAST MEDICAL & SURGICAL HISTORY: Chronic migraine headache SOCIAL HISTORY:Nonsmoker FAMILY HISTORY: Positive family history of migraine headache PHYSICAL EXAM (Prior to examination, patient consented to physical exam, hands were washed and my usual and customary physical exam procedures followed) 1) GENERAL: Well-developed, well-nourished, alert and oriented. Appears uncomfortable, sitting in a darkened room 2) HEAD: Normocephalic, atraumatic 3) HEENT: Pupils equal, round, reactive to light bilaterally. Sclera anicteric. Positive photophobia. No injection. No tearing. Nasopharynx, oropharynx, clear, no lesions. Ears bilaterally with normal tympanic membranes. 4) NECK: Full range of motion, no meningeal signs. 5) LUNGS: Clear auscultation bilaterally, no wheezes, no rhonchi, no retractions. 6) HEART: Regular rate and rhythm, no murmur, no heave, no gallop. 7) ABDOMEN: No guarding, no rebound, no focal tenderness, negative McBurney's, negative De Jesus's, negative Rovsing's, negative peritoneal sign, 8) MUSCULOSKELETAL: Moving all extremities, no focal areas of tenderness, no obvious trauma. No peripheral edema or discoloration. 9) BACK: No CVA tenderness, no midline vertebral tenderness, no fluctuance, no step-off, no obvious trauma, no visual or palpable abnormality. 10) SKIN: No rash, no petechiae. 11) Psychiatric: Patient is oriented X 3, there is no agitation. 12) NEURO: Awake, alert, and oriented to person, place and time. Answers questions appropriately. There were no obvious focal neurologic abnormalities. No cerebellar dysfunction. Cranial nerves 2 through to 12 intact. Normal steady gait. Upper and lower extremities bilaterally with strength 5 / 5, reflexes 2+. DIFFERENTIAL DIAGNOSIS: In no particular order, including but not limited to subarachnoid hemorrhage, migraine headache, tension headache and infectious causes such as meningitis, pharyngitis and sinusitis. The patient understands that this diagnosis is provisional and can never be 100% accurate. Usual and customary warnings were given concerning the clinical impression and all the patient's questions were answered. The patient was instructed to return to the emergency department should her symptoms worsen or return, or develop any new symptoms, otherwise to followup as directed in discharge instructions. This is a partial list of diagnoses considered. These considerations are based on history, physical exam, past history and reassessment. (Torsten Walters) Constitutional: Initial Vital Signs Temperature (C) 36.5 C 12/05/17 18:32 Heart Rate 84 12/05/17 18:32 Respiratory Rate 18 12/05/17 18:32 Blood Pressure 179/92 H 12/05/17 18:32 O2 Sat (%) 96 12/05/17 18:32 O2 Delivery Mode Room Air Allergies/Adverse Reactions: azithromycin [From Zithromax] Allergy (Mild, Verified 12/05/17 18:30) Rash oxycodone Allergy (Mild, Verified 12/05/17 18:30) Vomiting Penicillins Allergy (Mild, Verified 12/05/17 18:30) mild Home Medications: Medication Instructions Recorded Gabapentin Enacarbil [Horizant] 600 mg PO HS 05/17/17 SUMAtriptan [Imitrex 25 MG (*)] 25 mg PO 12/05/17 Medical Decision Making ED Course/Re-evaluation: 7:47 p.m.: Laboratory studies were obtained on this patient as she has a prior history of hyponatremia. She has normal sodium level today. I have reviewed her old medical records including imaging studies and admission record. At this time in the presence of a nonfocal neurologic exam, history of extensive imaging studies, and with the patient describes feeling like her usual migraine , will hold on imaging studies. 9:04 p.m.: Patient given IV Reglan, Toradol, Decadron. She was re-evaluated at this time states that she is "70% better" and would like to be discharged home. She remains with a nonfocal exam. I discussed the case with secondary supervising physician Dr. Pamela Bateman in the ER. At this time I do not identify indication for admission or emergent neurological consultation or imaging studies. Patient feels comfortable being discharged. She appears significantly improved. Usual and customary headache precautions and instructions provided. 9:19 p.m.: Preparations for discharge are underway, patient's IV was still in place and she mentioned that she was still having a small amount of residual pain and she requested this small dose of analgesia. 15 mcg of fentanyl will be administered. (Torsten Walters) Other Provider: The patient was evaluated and managed by the Physician It Compliance Analyst. I discussed the patient's presentation and course with the physician customer marketing assistant and agree with the evaluation. My co-signature indicates that I have reviewed this chart and I agree with the findings and plan of care as documented. I am the secondary supervising physician. (Pamela Bateman) - Data Points Laboratory Results: Laboratory Results 12/05/17 18:50 12/05/17 18:50 Medications Given: Discontinued Medications Dexamethasone (Decadron Injection) 10 mg IVP EDNOW ONE Stop: 12/05/17 19:25 Last Admin: 12/05/17 19:36 Dose: 10 mg Fentanyl (Sublimaze) 50 mcg IVP EDNOW ONE Stop: 12/05/17 21:20 Last Admin: 12/05/17 21:23 Dose: 50 mcg Ketorolac Tromethamine (Toradol) 15 mg IVP EDNOW ONE Stop: 12/05/17 19:28 Last Admin: 12/05/17 19:36 Dose: 15 mg Metoclopramide HCl (Reglan Injection) 10 mg IVP EDNOW ONE Stop: 12/05/17 19:25 Last Admin: 12/05/17 19:36 Dose: 10 mg Departure - Departure Disposition: Home, Routine, Self-Care Clinical Impression: Headache, migraine Condition: Good Instructions: Migraine Headache (ED) Additional Instructions: PLEASE FOLLOW UP WITH YOUR DOCTOR WITHIN 24 HOURS TO BE RECHECKED. RETURN TO THE ED IMMEDIATELY IF YOUR HEADACHE WORSENS, IF YOU DEVELOP A FEVER, NECK PAIN OR NECK STIFFNESS, OR IF YOU BECOME CONFUSED OR ABNORMALLY DROWSY. Referrals: Will Meier MD [Medical Doctor] - 1-2 days without fail
[2017-12-05] MEDS ORDERED: fentaNYL 100 MCG/2 ML INJ IVP ONE (21:19)
[2017-12-05] MEDS ORDERED: fentaNYL 100 MCG/2 ML INJ ONE (21:26)
[2017-12-05 21:52] VITALS: BP 161/87; PULSE 76; O2SAT 96
== END 2017-12-05 21:58 | disposition home or self-care (01) ==
DX: G43.909 Migraine, unspecified, not intractable, without status migrainosus (principal); J45.909 Unspecified asthma, uncomplicated; Z87.891 Personal history of nicotine dependence
CPT/HCPCS: 96374; 96375; 99284; J1100; J1885; J2765; J3010

== ENCOUNTER → 2018-01-03 | Outpatient (CLI) | payer OTHER, MEDICARE ==
[~2018-01-03] MED LIST: IOPAMIDOL (ISOVUE-300) 100 ML BTL ONE
== END ==
LOC: CIMAGING 08:02
PROVIDERS: ATTEND Physician Assistant
DX: K59.00 Constipation, unspecified (principal); D25.9 Leiomyoma of uterus, unspecified; M16.0 Bilateral primary osteoarthritis of hip; M51.36 Other intervertebral disc degeneration, lumbar region
CPT/HCPCS: 74177; Q9967

== ENCOUNTER → 2018-06-22 | Outpatient (CLI) | payer OTHER, MEDICARE | LOC: BMCIMAGING 10:08 | PROVIDERS: ATTEND Emergency Medicine | DX: R05 Cough (principal) ==

== ENCOUNTER → 2018-06-22 | Outpatient (CLI) | payer OTHER, MEDICARE | LOC: BMCIMAGING 11:18 | PROVIDERS: ATTEND Emergency Medicine | DX: R05 Cough (principal) ==

== ENCOUNTER 2018-09-23 12:37 | Emergency (ER) | payer OTHER, MEDICARE ==
--- NOTE | 2018-09-23 14:13 | EDPHY ---
H & P Stated Complaint: 3 days migraine olivarez not responsive to nl meds - Personal History Current Tetanus Diphtheria and Acellular Pertussis (TDAP): Yes - Medical/Surgical History Hx Asthma: Yes Hx Chronic Respiratory Disease: No Hx Diabetes: No Hx Cardiac Disease: No Hx Renal Disease: No Hx Cirrhosis: No Hx Alcoholism: No Hx HIV/AIDS: No Hx Splenectomy or Spleen Trauma: No Other PMH: migraines, exercise induced asthma - Social History Smoking Status: Former smoker Time Seen by Provider: 09/23/18 14:09 Constitutional: Initial Vital Signs Temperature (C) 36.5 C 09/23/18 12:44 Heart Rate 89 09/23/18 12:44 Respiratory Rate 18 09/23/18 12:44 Blood Pressure 127/86 H 09/23/18 12:44 O2 Sat (%) 94 09/23/18 12:44 O2 Delivery Mode Room Air O2 (L/minute) 6 Allergies/Adverse Reactions: azithromycin [From Zithromax] Allergy (Mild, Verified 09/23/18 12:42) Rash oxycodone Allergy (Mild, Verified 09/23/18 12:42) Vomiting Home Medications: Medication Instructions Recorded SUMAtriptan [Imitrex 25 MG (*)] 25 mg PO 12/05/17 [id number] Cap 09/23/18 Nortriptyline HCl 09/23/18 Medical Decision Making ED Course/Re-evaluation: CHIEF COMPLAINT: Migraine HISTORY OF PRESENT ILLNESS: The patient is a 72 y/o female with a history of cluster migraines complaining of a persistent migraine headache for the last 5- 6 days. She has been extensively worked up for this by two neurologists. She uses Fioricet daily and for this episode has been using sumatriptan without relief. She denies weakness, paresthesias, vision changes, speech difficulty, recent illness, recent trauma, fever, urinary symptoms. She would like to try a magnesium drip this time because her neurologist recommended it as an option. REVIEW OF SYSTEMS: A 10 point review of systems was performed and is negative with the exception of the elements mentioned in the history of present illness. PHYSICAL EXAM: HR, BP, O2 Sat, RR. Temp noted General Appearance: Alert, well hydrated, appropriate, and non-toxic appearing. Head: Atraumatic without scalp tenderness or obvious injury Eyes: Pupils equal, round, reactive to light and accommodation, EOMI, no trauma , no injection. Nose: Atraumatic, no rhinorrhea, clear. Throat: Mucus membranes moist. Neck: Supple, non-tender, no lymphadenopathy. Respiratory: No retractions, no distress, no wheezes, and no accessory muscle use. Lungs are clear to auscultation bilaterally. Cardiovascular: Regular rate and rhythm, no murmurs, rubs, or gallops. Good capillary refill all extremities. Gastrointestinal: Abdomen is soft, non-tender, non-distended, no masses, no rebound, no guarding, no peritoneal signs. Musculoskeletal: Normal active ROM of all extremities, atraumatic. Neurological: Alert, appropriate, and interactive. The patient has non-focal cranial nerves, motor, sensory, and cerebellar exam. Skin: No rashes, good turgor, no nodules on palpation. PAST MEDICAL HISTORY: Migraines PAST SURGICAL HISTORY: Noncontributory SOCIAL HISTORY: Lives in [place]. Retired. Former smoker. DIFFERENTIAL DIAGNOSIS: The differential diagnosis for the patient's headache included but was not limited to subarachnoid hemorrhage, migraine headache, tension headache and infectious causes such as meningitis, pharyngitis and sinusitis. MEDICAL DECISION MAKING: This is a 72 y/o female with a long history of migraines who presents with a 5-6 -day episode of a cluster of migraine headaches unimproved with her home medications. She has a normal neurologic exam. No indication for imaging at this time as these symptoms are the same as prior migraines. Plan for symptomatic treatment only. IV established. Patient is willing to try 10mg IV Reglan and O2 first before the magnesium. 1510: Reassessed patient. She says she is feeling "90%" better, but would still like to try the magnesium drip. Neuro exam remains normal. 2gm IV drip ordered. Patient will be discharged home with standard migraine care and follow up instructions. Return precautions discussed. (Rufino Vila) I assumed care this patient from Dr. Vila at 3:00 p.m.. The patient has received IV Reglan and 2 g of magnesium in a drip as recommended by her neurologist. On re-evaluation the patient feels that she is better but continues to have headache and would like further medication. She is speaking in normal sentences appears in no significant distress. Appears to be neurologically intact. Re-evaluation again at 5:00 p.m.. Patient's headache is almost completely resolved. She feels well to be discharged. She and I discussed treatment plan including criteria for return importance of follow-up and further evaluation. She expresses understanding and agreement (Reinaldo Reid) - Data Points Medications Given: Discontinued Medications Dexamethasone (Decadron Injection) 10 mg IVP EDNOW ONE Stop: 09/23/18 16:25 Last Admin: 09/23/18 16:31 Dose: 10 mg Diphenhydramine HCl (Benadryl Injection) 12.5 mg IVP EDNOW ONE Stop: 09/23/18 16:25 Last Admin: 09/23/18 16:32 Dose: 12.5 mg Magnesium Sulfate (Magnesium Sulf 2 Gm (Premix)) 50 mls @ 50 mls/hr IV EDNOW ONE Stop: 09/23/18 16:09 Last Admin: 09/23/18 15:17 Dose: 50 mls Ketorolac Tromethamine (Toradol) 15 mg IVP EDNOW ONE Stop: 09/23/18 16:25 Last Admin: 09/23/18 16:32 Dose: 15 mg Metoclopramide HCl (Reglan Injection) 10 mg IVP EDNOW ONE Stop: 09/23/18 14:23 Last Admin: 09/23/18 14:27 Dose: 10 mg Departure - Departure Disposition: Home, Routine, Self-Care Clinical Impression: Migraine-cluster headache syndrome Condition: Good Instructions: Cluster Headache (ED), Migraine Headache (ED) Additional Instructions: Follow up with your neurologist in the next week. Return to the ED for any worsening of condition. Referrals: CORNELL MENDIETA [Primary Care Provider] - As per Instructions David Shaw MD [Medical Doctor] - As per Instructions Will Meier MD [Medical Doctor] - As per Instructions Report Scribed for: Rufino Vila Report Scribed by: Radha Haines Date of Report: 09/23/18 Time of Report: 15:11
[2018-09-23] MEDS ORDERED: METOCLOPRAMIDE 10 MG/2 ML VIAL IVP ONE (14:22)
[2018-09-23] MEDS ORDERED: MAGNESIUM SULF 2 GM/WATER 50 ML IV ONE (15:10)
[2018-09-23] MEDS ORDERED: KETOROLAC 30 MG/1 ML SDV IVP ONE (16:24)
[2018-09-23] MEDS ORDERED: DEXAMETHASONE 10 MG/ML VIAL IVP ONE (16:24)
[2018-09-23] MEDS ORDERED: DEXAMETHASONE 4 MG/ML VIAL ONE (16:29)
[2018-09-23 17:22] VITALS: BP 156/87
== END 2018-09-23 17:21 | disposition home or self-care (01) ==
DX: G44.009 Cluster headache syndrome, unspecified, not intractable (principal); J45.990 Exercise induced bronchospasm; Z87.891 Personal history of nicotine dependence
CPT/HCPCS: 96365; 96375; 99284; J1100; J1200; J1885; J2765; J3475

== ENCOUNTER 2018-09-29 13:39 | Emergency (ER) | payer OTHER, MEDICARE ==
--- NOTE | 2018-09-29 13:55 | EDPHY ---
H & P Stated Complaint: headache x4 days "migraine" Source: Patient - Medical/Surgical History Hx Asthma: Yes Hx Chronic Respiratory Disease: No Hx Diabetes: No Hx Cardiac Disease: No Hx Renal Disease: No Hx Cirrhosis: No Hx Alcoholism: No Hx HIV/AIDS: No Hx Splenectomy or Spleen Trauma: No Other PMH: migraines, exercise induced asthma - Social History Smoking Status: Never smoked <Kg Biggs - Last Filed: 09/29/18 14:57> <Pamela Bateman - Last Filed: 09/29/18 17:54> Time Seen by Provider: 09/29/18 13:54 HPI/ROS: CHIEF COMPLAINT: Recurrent migraine headache HISTORY OF PRESENT ILLNESS: The patient presents the ED with complaints of a recurrent migraine headache. She was seen in the emergency department on Sunday of this week and was treated for a migraine headache. She reports she had improvement of her symptoms however developed recurrent headache this week. She denies any acute numbness or weakness. She denies any fever or neck stiffness. The patient has a chronic longstanding history of migraine headaches. She states that this is a typical migraine for her and is described as a primary left occipital headache with radiation to left retro-orbital area. The patient is not anticoagulated. She denies additional acute complaints. REVIEW OF SYSTEMS: A comprehensive 10 point review of systems is otherwise negative aside from elements mentioned in the history of present illness. (Kg Biggs) - Physical Exam Exam: General Appearance: Alert, mild discomfort secondary to pain Eyes: Pupils equal and round no pallor or injection ENT, Mouth: Mucous membranes moist Respiratory: There are no retractions, lungs are clear to auscultation Cardiovascular: Regular rate and rhythm Gastrointestinal: Abdomen is soft and nontender, no masses, bowel sounds normal Neurological: A&O, normal motor function, normal sensory exam, normal cranial nerves Skin: Warm and dry, no rashes Musculoskeletal: Neck is supple nontender, specifically no meningeal symptoms Extremities: symmetrical, full range of motion Psychiatric: Patient is oriented X 3, there is no agitation (Kg iBggs) Constitutional: Initial Vital Signs Temperature (C) 36.7 C 09/29/18 13:44 Heart Rate 101 H 09/29/18 13:44 Respiratory Rate 18 09/29/18 13:44 Blood Pressure 135/82 H 09/29/18 13:44 O2 Sat (%) 98 09/29/18 13:44 O2 Delivery Mode Room Air Allergies/Adverse Reactions: azithromycin [From Zithromax] Allergy (Mild, Verified 09/23/18 12:42) Rash oxycodone Allergy (Mild, Verified 09/23/18 12:42) Vomiting Home Medications: Medication Instructions Recorded SUMAtriptan [Imitrex 25 MG (*)] 25 mg PO 12/05/17 [id number] Cap 09/23/18 Nortriptyline HCl 09/23/18 Propranolol Sr [Inderal LA 60mg 60 mg PO DAILY #30 cap 09/29/18 (*)] Medical Decision Making <Kg Biggs - Last Filed: 09/29/18 14:57> - Diagnostics Imaging: Discussed imaging studies w/ call center representative Radiologist <Pamela Bateman - Last Filed: 09/29/18 17:54> - Diagnostics Imaging Results: Imaging Impressions Brain MRI 09/29/18 14:57 Impression: 1. No evidence of cerebral venous thrombosis 2. 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 Results discussed with Dr. Kanu Biggs at 4:37 PM. Head MRA 09/29/18 15:01 Impression: No evidence for acute cerebral venous thrombosis. ED Course/Re-evaluation: The patient presents to the ED with reported typical migraine. She was here on Sunday with similar symptoms. The patient denies any history of fall or trauma. She has no meningeal symptoms noted on exam. The patient was noted to be neurologically intact. The patient was treated with IV Reglan, Toradol, Decadron and Benadryl. I re-evaluated the patient at 3:00 p.m.. She continues to complain of an ongoing headache. Given the fact she has had 2 visits to the emergency department recently for headache without recent imaging an MRI of the brain with and without contrast has been ordered for further evaluation of her symptoms. The patient will be turned over to Dr. Bateman at shift change pending reassessment. (Kg Biggs) Differential Diagnosis: Differential diagnosis considered includes tension headache, migraine syndrome, meningitis, [employer] tumor (Kg Biggs) Other Provider: I assumed care of this patient at 3:[address] Kanu Biggs. At this time we are awaiting the results of the MRI. 1643: MRI shows edema in both occipital lobes that could be associated with PRES or reversible vasospasm associated with migraines.Will consult with neurology. 1655: Consulted with Dr. Shaw, neurology. Dr. Shaw reviewed the patient's MRI. Findings are quite subtle. Patient's blood pressure currently is 153/95. Plan will be to place the patient on a low dose of Inderal in order to help control her blood pressure. She should take this until she is seen by Dr. Meier. She should avoid medications with caffeine. (Pamela Bateman) - Data Points Laboratory Results: 09/29/18 15:12 POC Hgb 13.3 gm/dL gm/dL (12.6-16.3) POC Hct 39 % % (38-47) POC Sodium 140 mEq/L mEq/L (135-145) POC Potassium 4.0 mEq/L mEq/L (3.3-5.0) POC Chloride 103 mEq/L mEq/L (97-110) POC BUN 17 mg/dL mg/dL (7-23) POC Creatinine 0.8 mg/dL mg/dL (0.6-1.0) POC Glucose 96 mg/dL mg/dL (70-100) Medications Given: Discontinued Medications Cyclobenzaprine HCl (Flexeril) 10 mg PO EDNOW ONE Stop: 09/29/18 16:59 Last Admin: 09/29/18 17:22 Dose: 10 mg Dexamethasone (Decadron Injection) 10 mg IVP EDNOW ONE Stop: 09/29/18 14:05 Last Admin: 09/29/18 14:16 Dose: 10 mg Diphenhydramine HCl (Benadryl Injection) 25 mg IVP EDNOW ONE Stop: 09/29/18 14:05 Last Admin: 09/29/18 14:16 Dose: 25 mg Hydromorphone HCl (Dilaudid) 0.5 mg IVP EDNOW ONE Stop: 09/29/18 17:00 Last Admin: 09/29/18 17:21 Dose: 0.5 mg Sodium Chloride (Ns) 1,000 mls @ 0 mls/hr IV EDNOW ONE; Wide Open PRN Reason: Protocol Stop: 09/29/18 13:57 Last Admin: 09/29/18 14:14 Dose: 1,000 mls Ketorolac Tromethamine (Toradol) 30 mg IVP EDNOW ONE Stop: 09/29/18 13:57 Last Admin: 09/29/18 14:17 Dose: 30 mg Metoclopramide HCl (Reglan Injection) 10 mg IVP EDNOW ONE Stop: 09/29/18 13:57 Last Admin: 09/29/18 14:14 Dose: 10 mg Point of Care Test Results: Chemistry 09/29/18 15:12 POC Sodium 140 mEq/L mEq/L (135-145) POC Potassium 4.0 mEq/L mEq/L (3.3-5.0) POC Chloride 103 mEq/L mEq/L (97-110) POC BUN 17 mg/dL mg/dL (7-23) POC Creatinine 0.8 mg/dL mg/dL (0.6-1.0) POC Glucose 96 mg/dL mg/dL (70-100) ISTAT H&H 09/29/18 15:12 POC Hgb 13.3 gm/dL gm/dL (12.6-16.3) POC Hct 39 % % (38-47) Departure <Kg Biggs - Last Filed: 09/29/18 14:57> <Pamela Bateman - Last Filed: 09/29/18 17:54> - Departure Disposition: Home, Routine, Self-Care Clinical Impression: Headache, Migraine Condition: Good Instructions: Migraine Headache (ED), Hypertension (ED) Additional Instructions: We are worried that your migraine headaches may be related to undiagnosed hypertension. Please take the Inderal 60 mg LA as directed daily. You do not need another dose until tomorrow afternoon. I would monitor your blood pressure for the next several days. You been given a prepack of hydrocodone to use as needed for severe headache pain when you get home. You have also been given a prepack of Flexeril. You may take this for muscle spasm. Please follow up with Dr. Meier as previously scheduled on Sunday without fail. Please return to the emergency department or seek care urgently if your symptoms are worsening despite the above measures. Referrals: CORNELL MENDIETA [Primary Care Provider] - As per Instructions Prescriptions: Propranolol Sr [Inderal LA 60mg (*)] 60 mg PO DAILY #30 cap
[2018-09-29] MEDS ORDERED: METOCLOPRAMIDE 10 MG/2 ML VIAL IVP ONE (13:56)
[2018-09-29] MEDS ORDERED: KETOROLAC 30 MG/1 ML SDV IVP ONE (13:56)
[2018-09-29] MEDS ORDERED: NS 1,000 ML IV ONE (13:56)
[2018-09-29] MEDS ORDERED: DEXAMETHASONE 10 MG/ML VIAL IVP ONE (14:04)
[2018-09-29] MEDS ORDERED: DEXAMETHASONE 4 MG/ML VIAL ONE (14:10)
[2018-09-29] MEDS ORDERED: GADOBUTROL 10 ML VIAL IVP ONE (15:05)
[2018-09-29] MEDS ORDERED: CYCLOBENZAPRINE 10 MG TAB PO ONE (16:58)
[2018-09-29] MEDS ORDERED: HYDROmorphONE/DILAUDID 2 MG/ML INJ IVP ONE (16:59)
[2018-09-29] MEDS ORDERED: PROPRANOLOL SR 60 MG CAP PO SCH (17:30)
[2018-09-29] MEDS ORDERED: CYCLOBENZAPRINE 10MG PREPACK#3 BTL TAKEHOME ONE (17:52)
[2018-09-29] MEDS ORDERED: HYDROCOD/APAP 5/325 PREPACK#6 BTL TAKEHOME ONE (17:52)
[2018-09-29] MEDS ORDERED: PROPRANOLOL SR 60 MG CAP PO ONE (18:00)
[2018-09-29 18:10] VITALS: BP 157/89
== END 2018-09-29 18:09 | disposition home or self-care (01) ==
DX: G43.909 Migraine, unspecified, not intractable, without status migrainosus (principal); E86.9 Volume depletion, unspecified
CPT/HCPCS: 70544; 70553; 96361; 96374; 96375; 99285; A9585; J1100; J1170; J1200; J1885; J2765; 82435-PO; 82565-PO; 82947-PO; 84132-PO; 84295-PO; 84520-PO; 85014-PO

== ENCOUNTER → 2018-10-03 | Outpatient (CLI) | payer OTHER, MEDICARE | LOC: FCPNEURO 20:00 | PROVIDERS: ATTEND Internal Medicine Sleep Medicine | DX: G47.33 Obstructive sleep apnea (adult) (pediatric) (principal); Z99.81 Dependence on supplemental oxygen ==